=== PATIENT | female | born 1985 | race Caucasian/White ===

== ENCOUNTER 2017-03-07 10:17 | Emergency (ER) | payer BC ==
[~2017-03-07] VITALS: Ht 157.5 cm; Wt 124.6 kg
[~2017-03-07 10:17] MED LIST: AZIT250T94 PO; PRED20TA PO
[2017-03-07 10:20] VITALS: Ht 157.5 cm; Wt 124.6 kg
[2017-03-07] MEDS ORDERED: BENZ100C70 PO (11:37)
[2017-03-07] MEDS ORDERED: MED4DP PO (11:37)
[2017-03-07] MEDS ORDERED: D-ME473S2 PO (11:37)
--- NOTE | 2017-03-07 13:54 | ERD ---
ER Documentation Chief Complaint Chief Complaint cough x 3 weeks HPI 1-year-old female complaining of cough 3 weeks. Patient states that she has been diagnosed in the past with bronchitis and given antibiotics. Patient has been using albuterol inhaler. States it is a productive cough. No hemoptysis. No pleuritic chest pain. No fevers. Denies medical problems. NKDA. Surgical history: Denies. Up-to-date on vaccinations. ROS All systems reviewed and are negative except as per history of present illness. Medications Home Meds Active Scripts Methylprednisolone* (Medrol* DOSE PACK) 4 Mg/Dose-Pack Tab.ds.pk, 4 MG PO . DIRECTED, #1 PACKET Prov:OCTAVIO NUNEZ PA-C 03/07/17 Dextromethorphan Hb-Promethazine Hcl* (Promethazine DM* Syrup) 473 Ml Syrup, 5 ML PO Q6 Y for COUGH, #100 ML Prov:OCTAVIO NUNEZ PA-C 03/07/17 Benzonatate* (Tessalon Perle*) 100 Mg Capsule, 100 MG PO Q8H Y for COUGH, #30 CAP Prov:OCTAVIO NUNEZ PA-C 03/07/17 Prednisone* (Prednisone*) 20 Mg Tab, 40 MG PO DAILY for 4 Days, TAB Prov:JETT GILLESPIE 02/19/15 Azithromycin* (Zithromax*) 250 Mg Tablet, 250 MG PO .ZPACK DIRECTED, #6 TAB TAKE 500 MG (2 TABS) THE FIRST DAY THEN 250 MG (1 TAB) DAYS 2-5 Prov:JETT GILLESPIE 02/19/15 Allergies Allergies: Coded Allergies: No Known Allergy (Unverified , 03/07/17) PMhx/Soc Medical and Surgical Hx: pt denies Medical Hx, pt denies Surgical Hx Hx Alcohol Use: No Hx Substance Use: No Hx Tobacco Use: No Smoking Status: Never smoker Physical Exam Vitals Vital Signs Date Time Temp Pulse Resp B/P Pulse Ox O2 Delivery O2 Flow Rate FiO2 03/07/17 10:20 99.2 83 18 128/63 97 Physical Exam GENERAL: The patient is well-appearing, well-nourished, in no acute distress HEENT: Atraumatic. Conjunctivae are pink. Pupils equal, round, and reactive to light. There is no scleral icterus. Tympanic membranes clear bilaterally. Oropharynx clear. NECK: C-spine is soft and supple. There is no meningismus. There is no cervical lymphadenopathy. CHEST: Clear to auscultation bilaterally. There are no rales, wheezes or rhonchi. HEART: Regular rate and rhythm. No murmurs, clicks, rubs or gallops. No S3 or S4. Procedures/MDM MDM: 31-year-old female complaining of cough. I have low suspicion for pneumonia. Patient's breath sounds are within normal limits and patient is afebrile. Patient does not have bleeding wheezing heard on auscultation. Patient recently took a course of antibiotics which did not alleviate her symptoms and I have low suspicion that patient has developed a bacterial infection. I feel the patient's symptoms are likely associated with viral etiology. Patient is told to take medication as prescribed and take medication for symptomatic relief. Patient will be discharged with strict ER precautions. Departure Diagnosis: Primary Impression: Cough Condition: Stable Patient Instructions: Cough, Chronic, Uncertain Cause, (Adult) Referrals: [facility] YOU HAVE RECEIVED A MEDICAL SCREENING EXAM AND THE RESULTS INDICATE THAT YOU DO NOT HAVE A CONDITION THAT REQUIRES URGENT TREATMENT IN THE EMERGENCY DEPARTMENT. FURTHER EVALUATION AND TREATMENT OF YOUR CONDITION CAN WAIT UNTIL YOU ARE SEEN IN YOUR DOCTORS OFFICE WITHIN THE NEXT 1-2 DAYS. IT IS YOUR RESPONSIBILITY TO MAKE AN APPOINTMENT FOR FOLOW-UP CARE. IF YOU HAVE A PRIMARY DOCTOR --you should call your primary doctor and schedule an appointment IF YOU DO NOT HAVE A PRIMARY DOCTOR YOU CAN CALL OUR PHYSICIAN REFERRAL HOTLINE AT IF YOU CAN NOT AFFORD TO SEE A PHYSICIAN YOU CAN CHOSE FROM THE FOLLOWING [facility] [id number] [facility] [address] [facility] [address] [facility] [address] [facility] [address] [facility]. [facility]. [address] Additional Instructions: FOLLOW UP WITH YOUR PRIMARY CARE PHYSICIAN TOMORROW.Return to this facility if you are not improving as expected. OCTAVIO NUNEZ PA-C Mar 07, 2017 13:54
== END 2017-03-07 11:57 | disposition home or self-care (01) ==
LOC: FTE 10:17
DX: R05 Cough (principal)
CPT/HCPCS: 99284